=== PATIENT | male | born 1965 | race Caucasian/White ===

== ENCOUNTER → 2018-02-23 | Emergency (ER) | payer OTHER ==
[~2018-02-23] VITALS: Ht 170.2 cm; Wt 84.8 kg
[~2018-02-23] MED LIST: HYDROCHLOROTH12.5 MG; KETO10TA2 PO; LOTREL 10-40 M1 EACH; ORPH100T PO; TOPROL XL50 MG
== END | disposition home or self-care (01) ==
LOC: ER 09:13
DX: S86.812A Strain of other muscle(s) and tendon(s) at lower leg level, left leg, initial encounter (principal); X50.3XXA Overexertion from repetitive movements, initial encounter; Y93.B9 Activity, other involving muscle strengthening exercises; Y92.89 Other specified places as the place of occurrence of the external cause; Y99.8 Other external cause status